=== PATIENT | female | born 1955 | race African-American/Black ===

== ENCOUNTER 2016-08-03 08:27 | Emergency (ER) | payer OTHER, SELFPAY ==
[2016-08-03] MEDS ORDERED: HYDROcodone/Acetaminophen 10/325 mg Tablet ONE (08:41)
--- NOTE | 2016-08-03 09:48 | RAD ---
ONE VIEW CHEST HISTORY: Trauma. COMPARISON: 01/24/2016 FINDINGS: Enlarged cardiac silhouette. Pleural and parenchymal changes in the left lung base cannot be exclud ed. Adequate aeration of the left upper lobe and right lung parenchyma. No pneumothorax or osseous abnormalities. IMPRESSION: 1. Cardiomegaly. 2. Pleural and parenchymal changes in the left lung base cannot be excluded. POS: LOULOU
[2016-08-03] MEDS ORDERED: Ondansetron HCl/PF 4 MG/2 ML Vial ONE (09:58)
[2016-08-03] MEDS ORDERED: Ketorolac Tromethamine 30 MG/ML VIAL ONE (09:58)
[2016-08-03 10:21] LABS: ALT (SGPT) 21 U/L (0-55); AST (SGOT) 14 U/L (5-34); Albumin 3.7 g/dL (3.5-5.0); Alkaline Phosphatase 56 U/L (40-150); Anion Gap 17 mmol/L (10-20); BUN (Urea Nitrogen) 18 mg/dL (9.8-20.1); Bilirubin, Total Less than 0.3 mg/dL (0.2-1.2); Calc. Creatinine Clearance 0 mL/min (70-130); Calcium 9.3 mg/dL (7.8-10.44); Carbon Dioxide 27 mmol/L (22-29); Chloride 104 mmol/L (98-107); Estimated GFR-MDRD Greater than 90; Globulin 2.5 g/dL (2.4-3.5); Glucose 80 mg/dL (70-105); Lipase 24 U/L (8-78); Potassium 3.8 mmol/L (3.5-5.1); Protein, Total 6.2 g/dL (6.0-8.3); Sodium 144 mmol/L (136-145)
[2016-08-03 10:26] LABS: Hemoglobin 9.1 g/dL (12.0-16.0); Mean Corpuscular HGB CONC 30.6 g/dL (32.0-36.0); Mean Corpuscular Hemoglobin 23.6 pg (27.0-31.0); Mean Corpuscular Volume 77.1 fl (81.0-99.0); Mean Platelet Volume 7.4 fL (7.4-10.4); Platelet Count 279 thou/uL (130-400); Red Blood Cell (RBC) Count 3.84 mill/uL (4.20-5.40)
[2016-08-03 10:27] LABS: Anisocytosis MARKED = >30 cells (100X) (0-5/hpf); Band 7 % (5-11); Delete Auto Diff?? YES; Hypochromia SLIGHT = 6-15 cells (100X) (0-5/hpf); Lymphocytes 23 % (21-51); MDiff Complete? YES; Microcytosis MARKED = >30 cells (100X) (0-5/hpf); Neutrophil 63 % (42-75); Poikilocytosis SLIGHT = 6-15 cells (100X) (0-5/hpf); Reactive Lymphocytes 7 % (0-10)
[2016-08-03] MEDS ORDERED: Morphine Sulfate 2 MG/ML SYRINGE ONE ×2 (11:00→12:24)
--- NOTE | 2016-08-03 12:17 | CT ---
CT ABDOMEN WITH IV CONTRAST HISTORY: Fall. Abdomen injury and pain. FINDINGS: Atelectasis is present at the lung bases. A large hiatal hernia is present, with the stomach above the diaphragma. The liver, kidneys, and adrenal glands are within normal limits. No free fluid or free air apparent. The urinary bladder is unremarkable. A small amount of nonobstructed bowel exte nds into an umbilical hernia. Lack of oral contrast limits evaluation of the bowel. IMPRESSION: 1. Large hiatal hernia. 2. Umbilical hernia. 3. No acute traumatic injury is demonstrated. POS: OFF
--- NOTE | 2016-08-03 12:47 | CT ---
CT CHEST NONCONTRAST HISTORY: Fall. Chest injury. FINDINGS: There is mild atelectasis at each lung base. Calcified granulomata and mediastinal lymph nodes are consistent with healed granulomatous disease. A large hiatal hernia is again demonstrated, containi ng the stomach and most of the pancreas. No pleural fluid, pneumothorax, or mediastinal hematoma ev ident. IMPRESSION: 1. Large hiatal hernia. There are no findings to suggest that this is an acute traumatic hernia. 2. No acute traumatic injury is reliably demonstrated. POS: OFF
[2016-08-03 13:16] LABS: Bilirubin Negative (Negative); Blood, Urine Negative (Negative); Clarity Clear (Clear); Glucose, Urine (Dipstick) Negative (Negative); Leukocyte Negative (Negative); Nitrite Negative (Negative); Protein, Urine (Dipstick) Negative (Neg-Trace); Specific Gravity, Urine 1.015 (1.005-1.030); Urobilinogen 0.2 mg/dL (0.2-1.0); pH, Urine 6.5 (5.0-9.0)
[2016-08-03] MEDS ORDERED: Iopamidol 370 76% 100 ML VIAL ONE (13:23)
--- NOTE | 2016-08-03 13:37 | ERRECORD ---
[facility] EMERGENCY RECORD HPI CHEST PAIN (08:47 LHOD) CHIEF COMPLAINT: Patient presents for evaluation of chest pain, ongoing. HISTORIAN: History provided by patient, Additional history obtained from EMS. TIME COURSE: JUST TUBE MOUNTER PT ROLLED OUT OF BED LANDING ON "HARD FLOOR". BROUGHT IN BY EMS SINCE PT C/O SEVERE RIGHT RIB / CHEST PAINS. PT HAS RHEUMATOID ARTHRITIS FOR WHICH SHE IS STEROID DEPENDENT AND USES HOME O2. ASSOCIATED WITH: No associated chills, No associated cough, No associated diaphoresis, No associated fever, No associated nausea, No associated palpitations, No associated shortness of breath, Associated with trauma, No associated upper respiratory infection, No associated vomiting, PT NOT SOB BUT REPORTS DIFFICULT TO TAKE A DEEP BREATH DUE TO PAIN. EXACERBATED BY: Patient's condition not exacerbated by cough, Patient's condition not exacerbated by deep breaths, Patient's condition not exacerbated by movement, Patient's condition not exacerbated by palpation of chest. RELIEVED BY: Patient's condition relieved by nothing. ROS (08:57 LHOD) CONSTITUTIONAL: Historian denies chills, denies fever. CARDIOVASCULAR: Historian reports chest pain, denies diaphoresis, denies palpitations. RESPIRATORY: Historian denies cough, denies shortness of breath. GI: Historian denies abdominal pain, denies nausea, denies vomiting. GENITOURINARY FEMALE: Historian denies hematuria. MUSCULOSKELETAL: Historian reports back pain, reports joint swelling, denies neck pain. RIGHT LOWER CHEST / BACK PAIN. RA WITH SWELLING OF JOINTS. SKIN: Historian denies rash, NO LACS, ABRASIONS OR OBVIOUS HEMATOMA. NEUROLOGIC: Historian denies headache. HEMO/LYMPHATIC: Historian denies easy bruising. NOTES: All systems reviewed, negative except as described above. PAST MEDICAL HISTORY MEDICAL HISTORY: CHF, DC, DM Type II, DUE TO PREDNISONE, HTN, RHEUMATOID ARTHRITIS, ASTHMA, COPD. (08:56 LWAL) FEMALE SURGICAL HISTORY: Surgical history of hysterectomy 1981. (08:56 LWAL) PSYCHIATRIC HISTORY: No previous psychiatric history. (08:56 LWAL) SOCIAL HISTORY: Patient denies drug use, Patient has no smoking history. (08:56 LWAL) NOTES: Nursing records reviewed. (09:17 LHOD) KNOWN ALLERGIES &a-1R&a+25V*p+0X*d5577Q*c202B*c15G*c2P*p-0X&a-25V&a+1R Name: Delmis Chase : 1955 F61 MedRec: [id number] AcctNum: [id number] Prepared: Sat Aug 03, 2016 14:57 by Interface Page 1 of 5 pMD [facility] EMERGENCY RECORD chlorpromazine HCl CURRENT MEDICATIONS predniSONE: TABLET : Strength - 20 mg : ORAL Patient Dose: 2 cap(s) Oral once a day (in the morning). (08:49 LWAL) lisinopril-hydrochlorothiazide: TABLET : Strength - 20 mg-25 mg : ORAL Patient Dose: 1 tab(s) Oral once a day (in the morning). (08:50 LWAL) ibuprofen: TABLET : Strength - 800 mg : ORAL Patient Dose: 1 cap(s) Oral 2 times a day (before meals). (08:50 LWAL) [place]: TABLET : Strength - 7.5 mg-325 mg : ORAL Patient Dose: 1 tab(s) Oral 2 times a day (before meals). (08:50 LWAL) gabapentin: CAPSULE : Strength - 100 mg : ORAL Patient Dose: 1 tab(s) Oral once a day (in the morning). (08:51 LWAL) CAPSULE : Strength - 300 mg : ORAL Patient Dose: 1 tab(s) Oral once a day (at bedtime). (08:51 LWAL) albuterol: AEROSOL (GRAM) : Strength - 90 mcg : INHALATION Patient Dose: As Needed. (08:52 LWAL) NovoLIN 70/30: CARTRIDGE (ML) : Strength - 100 unit/mL (70-30) : SUBCUTANEOUS Patient Dose: 35 units Subcutaneous once a day (at bedtime). (08:52 LWAL) VITAL SIGNS VITAL SIGNS: BP: 161/85, Pulse: 70, Resp: 24, Temp: 98.0 (Oral), Pain: 10, O2 sat: 100 on 2L Oxygen, Time: 08/03/2016 08:35. (08:35 LWAL) BP: 171/94, Time: 08/03/2016 09:55. (09:55 SCHI) BP: 178/103, Pulse: 58, Resp: 20, Pain: 8, O2 sat: 96 on Room Air, Time: 08/03/2016 10:19. (10:19 SCHI) BP: 189/102, Pulse: 59, Resp: 20, Pain: 8, O2 sat: 91 on Room Air, Time: 08/03/2016 10:30. (10:30 SCHI) O2 sat: 93 on Room Air, Time: 08/03/2016 11:05. (11:05 SCHI) BP: 172/90, Pulse: 59, Resp: 18, O2 sat: 99 on 2L Oxygen, Time: 08/03/2016 11:06. (11:06 SCHI) BP: 185/87, Time: 08/03/2016 11:30. (11:30 SCHI) BP: 179/94, Pulse: 60, Resp: 18, Pain: 8, O2 sat: 95 on Room Air, Time: 08/03/2016 11:54. (11:54 SCHI) &a-1R&a+25V*p+0X*d2211M*c202B*c15G*c2P*p-0X&a-25V&a+1R Name: Delmis Chase : 1955 F61 MedRec: [id number] AcctNum: [id number] Prepared: Sat Aug 03, 2016 14:57 by Interface Page 2 of 5 pMD [facility] EMERGENCY RECORD BP: 167/96, Pulse: 65, Resp: 20, O2 sat: 92 on Room Air, Time: 08/03/2016 12:31. (12:31 SCHI) BP: 183/77, Pulse: 54, Resp: 20, Temp: 98.2 (Tympanic), Pain: 8 (Constant), O2 sat: 96 on Room Air, Time: 08/03/2016 13:15. (13:15 SCHI) PHYSICAL EXAM (09:13 LHOD) CONSTITUTIONAL: Vital Signs Reviewed, Patient afebrile, Pulse normal, Blood pressure, hypertensive, Respiratory rate, increased, Patient appears, in severe pain distress, Patient alert and oriented to person, place and time, OBESE, WEARING O2 CANNULA. HEAD: Head exam included findings of head atraumatic. EYES: Pupils equally round and reactive to light, Extraocular muscles intact. NECK: Neck exam included findings of normal range of motion, Trachea midline. RESPIRATORY CHEST: Respiratory exam included findings of, mild respiratory distress, Breath sounds clear, Tenderness, severe, to the right lateral chest, Comprehensive breast exam included findings of breasts symmetrical, RIGHT LOWER ANTERIOR AND LATERAL CHEST WALL MARKEDLY TENDER WITHOUT OBVIOUS CREPITUS. CARDIOVASCULAR: Heart rate regular rate and rhythm, Heart sounds normal. ABDOMEN FEMALE: Abdominal exam included findings of abdomen nontender, Distension present, FATTY ROLLS. BACK: PT ROLLED TO LEFT SIDE, BUT NOT ABLE TO SEE BACK WELL DUE ROLLS OF TISSUE. NO OBVIOUS VERTEBRAL TENDERNESS. UPPER EXTREMITY: Upper extremity exam normal. LOWER EXTREMITY: RIGHT KNEE MILD TENDERNESS. ABLE TO MOVE LEGS WITHOUT SIGNIFICANT PAIN. NEURO: Neuro exam findings include patient oriented to person, place and time, Speech normal. SKIN: NO OBVIOUS OPEN WOUND, ABRASION OR BRUISING. EKG INTERPRETATION (12:07 LHOD) 12 LEAD EKG INTERPRETATION: 12 lead EKG interpreted by Emergency Department Physician at time of study, 12 lead EKG shows, sinus bradycardia, Rate (beats per minute): 55, with no ectopics, T waves normal, Harmans, left. RADIOLOGYINTERPRETATION CHEST: Films of the chest show, cardiomegaly, Other findings: DUE TO SIZE, LARGE OVERLAPPING SOFT TISSUE, Chest CT negative, with contrast. (09:17 LHOD) ABDOMEN: Abdomen/pelvis CT scan, with contrast negative. (11:19 LHOD) &a-1R&a+25V*p+0X*u9530D*c202B*c15G*c2P*p-0X&a-25V&a+1R Name: Delmis Chase : 1955 F61 MedRec: [id number] AcctNum: [id number] Prepared: Sat Aug 03, 2016 14:57 by Interface Page 3 of 5 pMD [facility] EMERGENCY RECORD MEDICATION ADMINISTRATION SUMMARY Drug Name: morphine intravenous, Dose Ordered: 6 mg, Route: IV Push, Status: Given, Time: 12:30 08/03/2016, Drug Name: morphine intravenous, Dose Ordered: 6 mg, Route: IV Push, Status: Given, Time: 11:05 08/03/2016, Drug Name: morphine intravenous, Dose Ordered: 4 mg, Route: IV Push, Status: Given, Time: 10:08 08/03/2016, Drug Name: Toradol injection, Dose Ordered: 30 mg, Route: IV Push, Status: Given, Time: 10:06 08/03/2016, Drug Name: Zofran intravenous, Dose Ordered: 8 mg, Route: IV Push, Status: Given, Time: 10:04 08/03/2016, Drug Name: [place], Dose Ordered: 10 mg, Route: Oral, Status: Given, Time: 08:45 08/03/2016, Detailed record available in Medication Service section. DOCTOR NOTES (10:16 LHOD) TEXT: 1000--UNABLE TO SIT PT UP WITHOUT EXTREME PAIN, SO CT ABDOMEN ORDERED TO R/O HEPATIC INJURY. 1017--SHOULD BE NOTED DIAGNOSIS OF NAUSEA AND SCRIPT FOR ZOFRAN ENTERED IN ERROR FOR ANOTHER PATIENT. UNABLE TO ERASE FROM DIAGNOSIS. 1054--CT COMPLETE. PT CONTINUED C/O SEVERE RIGHT SIDE PAIN. 1118--CT ABD NEG., PT STILL UNABLE TO SIT UP. WILL TRY CT OF CHEST--R/O HEMO / PNEUMO 1139---BACK FROM CHEST CT. PT NEVER ABLE TO SIT UP WITHOUT EXCRUCIATING PAIN, SO TRANSFER FOR FURTHER EVALUATION AND PAIN CONTROL. PROBLEM LIST No recorded problems DIAGNOSIS (12:17 LHOD) FINAL: PRIMARY: RIGHT THORACO-ABDOMINAL TRAUMA WITH INTRACTABLE PAIN, ADDITIONAL: NAUSEA---UNCERTAIN ETIOLOGY, STEROID DEPENDENT RHEUMATOID ARTHRITIS. PRESCRIPTION (09:08 LHOD) Zofran ODT: TABLET, RAPID DISSOLVE : 8 mg : ORAL : Quantity: 1 Unit: tab(s) Route: ORAL Schedule: every 6 hours PRN Dispense: 4 May substitute. Refills: 3 . NOTES: No Refills. DISPOSITION PATIENT: Disposition Type: Discharge, Disposition: *Discharge Home, Condition: Good. (09:08 LHOD) Disposition Type: Entered in Error, Disposition: (none). (09:11 LHOD) Disposition Type: (none). (09:42 [facility]) Disposition Type: Transfer, Disposition: Transfer to [facility], Condition: Fair. (12:17 LHOD) &a-1R&a+25V*p+0X*f2529G*c202B*c15G*c2P*p-0X&a-25V&a+1R Name: Delmis Chase : 1955 F61 MedRec: [id number] AcctNum: [id number] Prepared: Ronald Aug 03, 2016 14:57 by Interface Page 4 of 5 pMD [facility] EMERGENCY RECORD Patient left the department. (13:29 SITA) Rowe: PEARL=MD Roly, Mark VINSON=SOPHIE Bean, Ami BUCKNER=SOPHIE Zamora, Yariela &a-1R&a+25V*p+0X*b8415Q*c202B*c15G*c2P*p-0X&a-25V&a+1R Name: Delmis hCase : 1955 F61 MedRec: [id number] AcctNum: [id number] Prepared: Ronald Aug 03, 2016 14:57 by Interface Page 5 of 5 pMD MTDD
--- NOTE | 2016-08-03 13:43 | PICIS ---
[facility] EMERGENCY RECORD COMMUNICATIONS (12:23 OD) COMMUNICATIONS: Notes: DISCUSSED WITH , ACCEPTS FOR TRANSFER, BUT WE WILL GIVE ADDITIONAL MORPHINE TO SEE IF PATIENT CAN TOLERATE MOVEMENT. TRIAGE (Sat Aug 03, 2016 08:36 LWAL) TRIAGE NOTES: FALL, R RIB AND BACK PAIN. (Sat Aug 03, 2016 08:36 LWAL) PATIENT: NAME: Delmis Chase, AGE: 61, GENDER: female, : Sun 1955, TIME OF GREET: Sat Aug 03, 2016 08:28, PREFERRED LANGUAGE: [place]ican, ETHNICITY: Not or , ECODE BILLING MAP: [facility], SSN: [id number], Zip Code: [address], KG WEIGHT: [phone], PHONE: , , , PERSON ID: [id number]. (Sat Aug 03, 2016 08:36 LWAL) COMPLAINT: FALL, SOB, RIB PAIN. (Sat Aug 03, 2016 08:36 LWAL) ADMISSION: URGENCY: 3 Urgent, ADMISSION SOURCE: Home, TRANSPORT: AMBULANCE - [facility], BED: ED -02. (Sat Aug 03, 2016 08:36 LWAL) ASSESSMENT: Assessment: ROLLED OUT OF BED ONTO FLOOR, PAIN TO RIGHT SIDE OF RIBS AND BACK, Symptoms began 729. (08:56 LWAL) PAIN: Location R RIBS AND BACK, Pain is intermittent. (08:56 LWAL) IMMUNIZATIONS: Flu vaccine up to date, Tetanus immunization up to date, Pneumococcal vaccine up to date. (08:56 LWAL) SIRS SCORING: Heart Rate 55-109 (0), Temp range 96.8-101.1 (0), respiratory rate 12-24 (0), Mental Status altered: no (0), Total SIRS Score 0, Infection or Suspected Infection: No. (08:56 LWAL) TREATMENTS IN PROGRESS: Patient on oxygen, Percent O2 =2, Patient on child monitor, Rhythm: NSR. (08:56 LWAL) PROVIDERS: TRIAGE NURSE: Ami Bean RN. (Sat Aug 03, 2016 08:36 LWAL) VITAL SIGNS: BP 161/85, Pulse 70, Resp 24, Temp 98.0, (Oral), Pain 10, O2 Sat 100, on 2L Oxygen, Time 08/03/2016 08:35. (08:35 LWAL) PREVIOUS VISIT ALLERGIES: chlorpromazine HCl. (Sat Aug 03, 2016 08:36 LWAL) chlorpromazine HCl. (08:56 LWAL) KNOWN ALLERGIES chlorpromazine HCl CURRENT MEDICATIONS predniSONE: TABLET : Strength - 20 mg : ORAL Patient Dose: 2 cap(s) Oral once a day (in the morning). (08:49 LWAL) lisinopril-hydrochlorothiazide: TABLET : Strength - 20 mg-25 mg : ORAL Patient Dose: 1 tab(s) Oral once a day (in the morning). (08:50 LWAL) ibuprofen: &a-1R&a+25V*p+0X*q4878A*c202B*c15G*c2P*p-0X&a-25V&a+1R Name: Delmis Chase : 1955 F61 MedRec: [id number] AcctNum: [id number] Prepared: Sat Aug 03, 2016 14:57 by Interface Page 1 of 15 pMD [facility] EMERGENCY RECORD TABLET : Strength - 800 mg : ORAL Patient Dose: 1 cap(s) Oral 2 times a day (before meals). (08:50 LWAL) [place]: TABLET : Strength - 7.5 mg-325 mg : ORAL Patient Dose: 1 tab(s) Oral 2 times a day (before meals). (08:50 LWAL) gabapentin: CAPSULE : Strength - 100 mg : ORAL Patient Dose: 1 tab(s) Oral once a day (in the morning). (08:51 LWAL) CAPSULE : Strength - 300 mg : ORAL Patient Dose: 1 tab(s) Oral once a day (at bedtime). (08:51 LWAL) albuterol: AEROSOL (GRAM) : Strength - 90 mcg : INHALATION Patient Dose: As Needed. (08:52 LWAL) NovoLIN 70/30: CARTRIDGE (ML) : Strength - 100 unit/mL (70-30) : SUBCUTANEOUS Patient Dose: 35 units Subcutaneous once a day (at bedtime). (08:52 LWAL) VITAL SIGNS VITAL SIGNS: BP: 161/85, Pulse: 70, Resp: 24, Temp: 98.0 (Oral), Pain: 10, O2 sat: 100 on 2L Oxygen, Time: 08/03/2016 08:35. (08:35 LWAL) BP: 171/94, Time: 08/03/2016 09:55. (09:55 SCHI) BP: 178/103, Pulse: 58, Resp: 20, Pain: 8, O2 sat: 96 on Room Air, Time: 08/03/2016 10:19. (10:19 SCHI) BP: 189/102, Pulse: 59, Resp: 20, Pain: 8, O2 sat: 91 on Room Air, Time: 08/03/2016 10:30. (10:30 SCHI) O2 sat: 93 on Room Air, Time: 08/03/2016 11:05. (11:05 SCHI) BP: 172/90, Pulse: 59, Resp: 18, O2 sat: 99 on 2L Oxygen, Time: 08/03/2016 11:06. (11:06 SCHI) BP: 185/87, Time: 08/03/2016 11:30. (11:30 SCHI) BP: 179/94, Pulse: 60, Resp: 18, Pain: 8, O2 sat: 95 on Room Air, Time: 08/03/2016 11:54. (11:54 SCHI) BP: 167/96, Pulse: 65, Resp: 20, O2 sat: 92 on Room Air, Time: 08/03/2016 12:31. (12:31 SCHI) BP: 183/77, Pulse: 54, Resp: 20, Temp: 98.2 (Tympanic), Pain: 8 (Constant), O2 sat: 96 on Room Air, Time: 08/03/2016 13:15. (13:15 SCHI) NURSING ASSESSMENT: FALL RISK (09:02 LWAL) FALL RISK: Fall risk assessment findings include: History of falls (5), Impaired mobility (3), Total score 8. NURSING ASSESSMENT: FOCUSED (08:45 LWAL) &a-1R&a+25V*p+0X*a4721D*c202B*c15G*c2P*p-0X&a-25V&a+1R Name: Delmis Chase : 1955 F61 MedRec: [id number] AcctNum: [id number] Prepared: Ronald Aug 03, 2016 14:57 by Interface Page 2 of 15 pMD [facility] EMERGENCY RECORD CONSTITUTIONAL: Patient arrives, via [facility], Unsteady gait, Assistance to cart, Lift to cart, History obtained from patient, Patient appears comfortable, Patient cooperative, Patient alert, Oriented to person, place and time, Skin warm, Skin dry, Skin normal in color, Mucous membranes pink, Mucous membranes moist, Patient is well-groomed, Patient complains of PT ROLLED OUT OF BED ONTO FLOOR, PAIN TO RIGHT RIBS AND BACK . PT WAS TRYING TO GET UP OUT OF THE BED AND HER HAND SLIPPED. PT CONTINUED IN MOTION TO ROLLING OUT OF BED AND INTO FLOOR ONTO HER RIGHT SIDE. PT DID NOT HIT ANYTHING EXCEPT THE FLOOR. FAMILY TO HELP GET THE PT UP AND BACK INTO THE BED. PAIN: R RIBS AND BACK, Onset of pain 0730, on a scale 0-10 patient rates pain as 10, Nothing has been tried to alleviate the pain. EYES: Focused eye assessment finding include pupils equally round and reactive to light, Left pupil 3 mm in size, Right pupil 3 mm in size. NEURO: Focused neuro assessment findings include patient alert, cooperative, No facial droop noted, Speech coherent, No loss of consciousness. GCS: Eye opening: (4) - Spontaneous, Verbal: (5) - Oriented/conversive, Motor: (6) - Obeys commands/Spontaneous, GCS Total: 15. RESPIRATORY: Focused respiratory assessment findings include breath sounds clear. ABDOMEN: Focused abdominal assessment findings include abdomen soft, tender, Notes: TENDERNESS UPON PALPATION TO R SIDE. GENITOURINARY FEMALE: Focused genitourinary assessment not applicable. LACERATION: Focused laceration assessment not applicable. NOTES: Patient tolerated procedure well. SAFETY: Side rails up, Cart/Stretcher in lowest position, Family at bedside, Call light within reach, Hospital ID band on. NURSING PROCEDURE: BEDSIDE RADIOLOGY (08:52 LWAL) PATIENT IDENTIFIER: Patient actively involved in identification process, Patient's identity verified by patient stating name, Patient's identity verified by hospital ID bracelet. BEDSIDE RADIOLOGY: Bedside radiology performed by LILIA, Portable chest x-ray performed. NOTES: Patient tolerated procedure well. SAFETY: Side rails up, Cart/Stretcher in lowest position, Family at bedside, Call light within reach, Hospital ID band on. NURSING PROCEDURE: ANALYTICAL CLERK (08:45 SCHI) ANALYTICAL CLERK: Patient placed on child monitor, Patient placed on non-invasive blood pressure monitor, Patient placed on continuous pulse oximetry, Adult/pediatric oxisensor applied. &a-1R&a+25V*p+0X*j8062B*c202B*c15G*c2P*p-0X&a-25V&a+1R Name: Delmis Chase : 1955 F61 MedRec: [id number] AcctNum: [id number] Prepared: Sat Aug 03, 2016 14:57 by Interface Page 3 of 15 pMD [facility] EMERGENCY RECORD NURSING PROCEDURE: EKG CHART (12:22 SCHI) PATIENT IDENTIFIER: Patient actively involved in identification process, Patient's identity verified by patient stating name, Patient's identity verified by patient stating date. EKG: EKG indicated for complaint of palpitations, 12 lead EKG performed on the left chest, done by NISH BARRIOS. NOTES: Emotional support needed and given, Patient tolerated procedure well. SAFETY: Side rails up, Cart/Stretcher in lowest position, Family at bedside, Hospital ID band on. NURSING PROCEDURE: IV PATIENT IDENITIFIER: Patient actively involved in identification process, Patient's identity verified by patient stating name, Patient's identity verified by patient stating date, Patient's identity verified by hospital ID bracelet. (09:55 SCHI) IV SITE 1: IV therapy indicated for hydration, IV therapy indicated for medication administration, IV established, to the left antecubital, using a 20 gauge catheter, in one attempt, IV site prepped with chloraprep, Saline lock established, Flushed with normal saline (mls): 10, Labs drawn at time of placement, labeled in the presence of the patient and sent to lab. (09:55 SCHI) FOLLOW-UP SITE 1: Notes: NO S/S INFECTION, SWELLING, BLEEDING, CONTINUED FOR TRANSFER. (13:23 SCHI) NURSING PROCEDURE: NURSE NOTES (12:22 SCHI) NURSES NOTES: Warm blanket given to patient, Notes: PT PLACED IN GOWN with difficulty, pt extreme pain with movement or turning. NURSING PROCEDURE: OXYGEN THERAPY (08:45 SCHI) OXYGEN THERAPY: 2L oxygen given, via nasal cannula applied. NURSING PROCEDURE: TRANSFER (13:23 SCHI) TRANSFER: Reason for transfer no bed available, Reason for transfer need for specialized care, Diagnosis: rt side abd trauma with intractable pain, nausea, Accepting institution: [facility], Accepting physician: bebo, Referring physician: roly, Transported by urgent ambulance, accompanied by emergency medical services personnel, Report called to receiving facility, [facility] at 1357, Provided opportunity to answer questions, Bed assigned er, Summary of Care printed, Copy of patient record prepared for receiving facility, Copy of diagnostic studies, Status of patient's valuables documented on chart, Medication reconciliation form prepared and sent to receiving facility, Patient consent for transfer signed, Patient given appropriate sedation for safe transport, Family member contacted. BELONGINGS: Belongings and valuables with patient at time of discharge include:, Belongings sent home with family member. &a-1R&a+25V*p+0X*a5804M*c202B*c15G*c2P*p-0X&a-25V&a+1R Name: Delmis Chase : 1955 F61 MedRec: [id number] AcctNum: [id number] Prepared: Ronald Aug 03, 2016 14:57 by Interface Page 4 of 15 pMD [facility] EMERGENCY RECORD EQUIPMENT WITH PATIENT: Equipment with patient at time of transfer child monitor, Saline lock intact and patent at time of transfer. NOTES: Emotional support needed and given, Patient tolerated procedure well. NURSING PROCEDURE: TRANSPORT TO TESTS PATIENT IDENTIFIER: Patient actively involved in identification process, Patient's identity verified by patient stating name, Patient's identity verified by hospital ID braamyet. (10:40 LWAL) TRANSPORT TO TESTS: Transport indicated to facilitate diagnosis, Patient transported to CT scan, via cart, Accompanied by x-ray infectious waste technician, Accompanied by nurse. (10:40 LWAL) Transport indicated to facilitate diagnosis, Patient transported to CT scan, via cart, Accompanied by x-ray infectious waste technician, Accompanied by nurse. (11:30 SCHI) FOLLOW-UP: After procedure, patient returned to emergency department. (11:39 SCHI) NOTES: Patient tolerated procedure well. (10:40 LWAL) SAFETY: Side rails up, Cart/Stretcher in lowest position, Family at bedside, Call light within reach, Hospital ID band on. (10:40 LWAL) NURSING PROCEDURE: URINE COLLECTION (12:22 SCHI) PATIENT IDENTIFIER: Patient actively involved in identification process, Patient's identity verified by patient stating name, Patient's identity verified by hospital ID bracelet, Patient's identity verified by family member. URINE COLLECTION FEMALE: Urine collection indicated to monitor output, Simple deras inserted, using a 16 fr pre-connected catheter, in one attempt, urine daphne in color, Specimen labeled in the presence of the patient and sent to lab. SAFETY: Side rails up, Cart/Stretcher in lowest position, Family at bedside, Hospital ID band on. ORDER DETAILS Order Name: ANALYTICAL CLERK ED, Status: Done, Time: 12:21 08/03/2016, User: SITA, - Ordered for: MD Dunham Lefayne, - Entered by: MD Dunham Lefayne - Ronald Aug 03, 2016 11:57, - Quantity: 1, Order Name: CBC with Differential, Status: Active, Time: 09:41 08/03/2016, User: PEARL, - Ordered for: MD Dunham Lefayne, - Entered by: MD Dunham Lefayne - Ronald Aug 03, 2016 09:41, - Quantity: 1, Order Name: Comprehensive Metabolic Panel, Status: Active, Time: 09:41 08/03/2016, User: PEARL, - Ordered for: MD Dunham Lefayne, &a-1R&a+25V*p+0X*z9986B*c202B*c15G*c2P*p-0X&a-25V&a+1R Name: Delmis Chase : 1955 F61 MedRec: [id number] AcctNum: [id number] Prepared: Sat Aug 03, 2016 14:57 by Interface Page 5 of 15 pMD [facility] EMERGENCY RECORD - Entered by: MD Dunham Lefayne - Ronald Aug 03, 2016 09:41, - Quantity: 1, Order Name: CT Abdomen Pelvis Trauma, Status: Active, Time: 09:44 08/03/2016, User: PEARL, - Ordered for: MD Dunham Lefayne, - Entered by: MD Dunham Lefayne - Sat Aug 03, 2016 09:44, - Quantity: 1, Order Name: CT Chest W Con, Status: Canceled, Time: 11:23 08/03/2016, User: System, - Ordered for: MD Dunham Lefayne, - Entered by: MD Dunham Lefayne - Sat Aug 03, 2016 11:18, - Quantity: 1, Order Name: CT Chest W Con, Status: Active, Time: 11:24 08/03/2016, User: PEARL, - Ordered for: MD Dunham Lefayne, - Entered by: MD Dunham Lefayne - Sat Aug 03, 2016 11:24, - Quantity: 1, Order Name: CT Thoracic Spine WO Con, Status: Canceled, Time: 11:43 08/03/2016, User: System, - Ordered for: MD Dunham Lefayne, - Entered by: MD Dunham Lefayne - Sat Aug 03, 2016 11:25, - Quantity: 1, Order Name: EKG 12 Lead in Emergency Room, Status: Active, Time: 11:57 08/03/2016, User: PEARL, - Ordered for: MD Dunham Lefayne, - Entered by: MD Dunham Lefayne - Sat Aug 03, 2016 11:57, - Quantity: 1, Order Name: DERAS CATHETER ED, Status: Done, Time: 12:21 08/03/2016, User: SITA, - Ordered for: MD Dunham Lefayne, - Entered by: MD Dunham Lefayne - Sat Aug 03, 2016 11:57, - Quantity: 1, Order Name: Lipase, Status: Active, Time: 09:58 08/03/2016, User: PEARL, - Ordered for: MD Dunham Lefayne, - Entered by: MD Dunham Lefayne - Sat Aug 03, 2016 09:58, - Quantity: 1, Order Name: SALINE LOCK, Status: Done, Time: 09:56 08/03/2016, User: SITA, - Ordered for: MD Dunham Lefayne, - Entered by: MD Dunham Lefayne - Sat Aug 03, 2016 09:41, - Quantity: 1, Order Name: Urinalysis w/ Rflx Microscopic, Status: Active, Time: 11:57 08/03/2016, User: OD, - Ordered for: MD Dunham Lefayne, - Entered by: MD Dunham Lefayne - Ronald Aug 03, 2016 11:57, - Quantity: 1, Order Name: XR Chest Pa & Lat STANDARD, Status: Canceled, Time: 08:45 08/03/2016, User: System, - Ordered for: MD Dunham Lefayne, &a-1R&a+25V*p+0X*v1740C*c202B*c15G*c2P*p-0X&a-25V&a+1R Name: Delmis Chase : 1955 F61 MedRec: [id number] AcctNum: [id number] Prepared: Sat Aug 03, 2016 14:57 by Interface Page 6 of 15 pMD [facility] EMERGENCY RECORD - Entered by: MD Dunham Lefayne - Ronald Aug 03, 2016 08:38, - Quantity: 1. MEDICATION ADMINISTRATION SUMMARY Drug Name: morphine intravenous, Dose Ordered: 6 mg, Route: IV Push, Status: Given, Time: 12:30 08/03/2016, Drug Name: morphine intravenous, Dose Ordered: 6 mg, Route: IV Push, Status: Given, Time: 11:05 08/03/2016, Drug Name: morphine intravenous, Dose Ordered: 4 mg, Route: IV Push, Status: Given, Time: 10:08 08/03/2016, Drug Name: Toradol injection, Dose Ordered: 30 mg, Route: IV Push, Status: Given, Time: 10:06 08/03/2016, Drug Name: Zofran intravenous, Dose Ordered: 8 mg, Route: IV Push, Status: Given, Time: 10:04 08/03/2016, Drug Name: [place], Dose Ordered: 10 mg, Route: Oral, Status: Given, Time: 08:45 08/03/2016, Detailed record available in Medication Service section. MEDICATION SERVICE morphine intravenous: Order: morphine intravenous (morphine sulfate) - Dose: 4 mg : IV Push Ordered by: Mark Dunham MD Entered by: Mark Dunham MD Sat Aug 03, 2016 09:43 , Acknowledged by: Barby Zamora RN Sat Aug 03, 2016 09:57 Documented as given by: Barby Zamora RN Sat Aug 03, 2016 10:08 Patient, Medication, Dose, Route and Time verified prior to administration. IV SITE #1 IVP, subsequent different medication, Catheter placement confirmed via flush prior to administration, IV site without signs or symptoms of infiltration during medication administration, No swelling during administration, No drainage during administration, IV flushed after administration, Correct patient, time, route, dose and medication confirmed prior to administration, Patient advised of actions and side-effects prior to administration, Allergies confirmed and medications reviewed prior to administration. : Follow Up : Response assessment performed, No signs or symptoms of allergic reaction noted, Decreased pain, _IV SITE #1:_, from 04/15 to 02/13. (10:30 SCHI) morphine intravenous: Order: morphine intravenous (morphine sulfate) - Dose: 6 mg : IV Push Ordered by: Mark Dunham MD Entered by: Mark Dunham MD Sat Aug 03, 2016 10:54 , Acknowledged by: Barby Zamora RN Sat Aug 03, 2016 10:59 Documented as given by: Barby Zamora RN Sat Aug 03, 2016 11:05 Patient, Medication, Dose, Route and Time verified prior to administration. IV SITE #1 IVP, subsequent different medication, Catheter placement confirmed via flush prior to administration, IV site without signs or symptoms of infiltration during medication administration, No &a-1R&a+25V*p+0X*l0222D*c202B*c15G*c2P*p-0X&a-25V&a+1R Name: Delmis Chase : 1955 F61 MedRec: [id number] AcctNum: [id number] Prepared: Sat Aug 03, 2016 14:57 by Interface Page 7 of 15 pMD [facility] EMERGENCY RECORD swelling during administration, No drainage during administration, IV flushed after administration, Correct patient, time, route, dose and medication confirmed prior to administration, Patient advised of actions and side-effects prior to administration, Allergies confirmed and medications reviewed prior to administration. : Follow Up : Response assessment performed, No signs or symptoms of allergic reaction noted, No change in pain, No change in symptoms, _IV SITE #1:_. (11:30 SCHI) morphine intravenous: Order: morphine intravenous (morphine sulfate) - Dose: 6 mg : IV Push Ordered by: Mark Dunham MD Entered by: Mark Dunham MD Sat Aug 03, 2016 12:16 , Acknowledged by: Barby Zamora RN Sat Aug 03, 2016 12:24 Documented as given by: Barby Zamora RN Sat Aug 03, 2016 12:30 Patient, Medication, Dose, Route and Time verified prior to administration. IV SITE #1 IVP, repeat same medication, Catheter placement confirmed via flush prior to administration, IV site without signs or symptoms of infiltration during medication administration, No swelling during administration, No drainage during administration, IV flushed after administration, Correct patient, time, route, dose and medication confirmed prior to administration, Patient advised of actions and side-effects prior to administration, Allergies confirmed and medications reviewed prior to administration. : Follow Up : Response assessment performed, No signs or symptoms of allergic reaction noted, No change in symptoms, _IV SITE #1:_. (12:45 SCHI) [place]: Order: [place] (hydrocodone bitartrate/acetaminophen) - Dose: 10 mg : Oral Ordered by: Mark Dunham MD Entered by: Mark Dunham MD Sat Aug 03, 2016 08:37 , Acknowledged by: Ami Bean RN Sat Aug 03, 2016 08:40 Documented as given by: Ami Bean RN Sat Aug 03, 2016 08:45 Patient, Medication, Dose, Route and Time verified prior to administration. Amount given: 10 MG, Site: Medication administered P.O., Correct patient, time, route, dose and medication confirmed prior to administration, Patient advised of actions and side-effects prior to administration, Allergies confirmed and medications reviewed prior to administration, Patient in position of comfort, Side rails up, Cart in lowest position, Family at bedside. Toradol injection: Order: Toradol injection (ketorolac tromethamine) - Dose: 30 mg : IV Push POTENTIAL CONTRAINDICATED INTERACTION: ibuprofen - Patient tolerated similar in past Ordered by: Mark Dunham MD Entered by: Mark Dunham MD Sat Aug 03, 2016 09:42 , Acknowledged by: Barby Zamora RN Sat Aug 03, 2016 09:57 Documented as given by: Barby Zamora RN Sat Aug 03, 2016 10:06 Patient, Medication, Dose, Route and Time verified prior to &a-1R&a+25V*p+0X*e5010L*c202B*c15G*c2P*p-0X&a-25V&a+1R Name: Delmis Chase : 1955 F61 MedRec: [id number] AcctNum: [id number] Prepared: Sat Aug 03, 2016 14:57 by Interface Page 8 of 15 pMD [facility] EMERGENCY RECORD administration. IV SITE #1 IVP, subsequent different medication, Catheter placement confirmed via flush prior to administration, IV site without signs or symptoms of infiltration during medication administration, No swelling during administration, No drainage during administration, IV flushed after administration, Correct patient, time, route, dose and medication confirmed prior to administration, Patient advised of actions and side-effects prior to administration, Allergies confirmed and medications reviewed prior to administration. Zofran intravenous: Order: Zofran intravenous (ondansetron HCl) - Dose: 8 mg : IV Push Ordered by: Mark Dunham MD Entered by: Mark Dunham MD Sat Aug 03, 2016 09:43 , Acknowledged by: Barby Zamora RN Sat Aug 03, 2016 09:57 Documented as given by: Barby Zamora RN Sat Aug 03, 2016 10:04 Patient, Medication, Dose, Route and Time verified prior to administration. IV SITE #1 IVP, initial medication, Catheter placement confirmed via flush prior to administration, IV site without signs or symptoms of infiltration during medication administration, No swelling during administration, No drainage during administration, IV flushed after administration, Correct patient, time, route, dose and medication confirmed prior to administration, Patient advised of actions and side-effects prior to administration, Allergies confirmed and medications reviewed prior to administration. HPI CHEST PAIN (08:47 LHOD) CHIEF COMPLAINT: Patient presents for evaluation of chest pain, ongoing. HISTORIAN: History provided by patient, Additional history obtained from EMS. TIME COURSE: JUST POST SECONDARY PROFESSIONAL PT ROLLED OUT OF BED LANDING ON "HARD FLOOR". BROUGHT IN BY EMS SINCE PT C/O SEVERE RIGHT RIB / CHEST PAINS. PT HAS RHEUMATOID ARTHRITIS FOR WHICH SHE IS STEROID DEPENDENT AND USES HOME O2. ASSOCIATED WITH: No associated chills, No associated cough, No associated diaphoresis, No associated fever, No associated nausea, No associated palpitations, No associated shortness of breath, Associated with trauma, No associated upper respiratory infection, No associated vomiting, PT NOT SOB BUT REPORTS DIFFICULT TO TAKE A DEEP BREATH DUE TO PAIN. EXACERBATED BY: Patient's condition not exacerbated by cough, Patient's condition not exacerbated by deep breaths, Patient's condition not exacerbated by movement, Patient's condition not exacerbated by palpation of chest. RELIEVED BY: Patient's condition relieved by nothing. ROS (08:57 LHOD) CONSTITUTIONAL: Historian denies chills, denies fever. CARDIOVASCULAR: Historian reports chest pain, denies &a-1R&a+25V*p+0X*z7995D*c202B*c15G*c2P*p-0X&a-25V&a+1R Name: Delmis Chase : 1955 F61 MedRec: [id number] AcctNum: [id number] Prepared: Ronald Aug 03, 2016 14:57 by Interface Page 9 of 15 pMD [facility] EMERGENCY RECORD diaphoresis, denies palpitations. RESPIRATORY: Historian denies cough, denies shortness of breath. GI: Historian denies abdominal pain, denies nausea, denies vomiting. GENITOURINARY FEMALE: Historian denies hematuria. MUSCULOSKELETAL: Historian reports back pain, reports joint swelling, denies neck pain. RIGHT LOWER CHEST / BACK PAIN. RA WITH SWELLING OF JOINTS. SKIN: Historian denies rash, NO LACS, ABRASIONS OR OBVIOUS HEMATOMA. NEUROLOGIC: Historian denies headache. HEMO/LYMPHATIC: Historian denies easy bruising. NOTES: All systems reviewed, negative except as described above. PAST MEDICAL HISTORY MEDICAL HISTORY: CHF, [place], DM Type II, DUE TO PREDNISONE, HTN, RHEUMATOID ARTHRITIS, ASTHMA, COPD. (08:56 LWAL) FEMALE SURGICAL HISTORY: Surgical history of hysterectomy 1981. (08:56 LWAL) PSYCHIATRIC HISTORY: No previous psychiatric history. (08:56 LWAL) SOCIAL HISTORY: Patient denies drug use, Patient has no smoking history. (08:56 LWAL) NOTES: Nursing records reviewed. (09:17 LHOD) PHYSICAL EXAM (09:13 LHOD) CONSTITUTIONAL: Vital Signs Reviewed, Patient afebrile, Pulse normal, Blood pressure, hypertensive, Respiratory rate, increased, Patient appears, in severe pain distress, Patient alert and oriented to person, place and time, OBESE, WEARING O2 CANNULA. HEAD: Head exam included findings of head atraumatic. EYES: Pupils equally round and reactive to light, Extraocular muscles intact. NECK: Neck exam included findings of normal range of motion, Trachea midline. RESPIRATORY CHEST: Respiratory exam included findings of, mild respiratory distress, Breath sounds clear, Tenderness, severe, to the right lateral chest, Comprehensive breast exam included findings of breasts symmetrical, RIGHT LOWER ANTERIOR AND LATERAL CHEST WALL MARKEDLY TENDER WITHOUT OBVIOUS CREPITUS. CARDIOVASCULAR: Heart rate regular rate and rhythm, Heart sounds normal. ABDOMEN FEMALE: Abdominal exam included findings of abdomen nontender, Distension present, FATTY ROLLS. BACK: PT ROLLED TO LEFT SIDE, BUT NOT ABLE TO SEE BACK WELL DUE ROLLS OF TISSUE. NO OBVIOUS VERTEBRAL TENDERNESS. UPPER EXTREMITY: Upper extremity exam normal. &a-1R&a+25V*p+0X*h3142O*c202B*c15G*c2P*p-0X&a-25V&a+1R Name: Delmis Chase : 1955 F61 MedRec: [id number] AcctNum: [id number] Prepared: Ronald Aug 03, 2016 14:57 by Interface Page 10 of 15 pMD [facility] EMERGENCY RECORD LOWER EXTREMITY: RIGHT KNEE MILD TENDERNESS. ABLE TO MOVE LEGS WITHOUT SIGNIFICANT PAIN. NEURO: Neuro exam findings include patient oriented to person, place and time, Speech normal. SKIN: NO OBVIOUS OPEN WOUND, ABRASION OR BRUISING. LAB INTERPRETATION (10:26 LHOD) INTERPRETATION: I reviewed the lab results, CBC abnormal, Hemoglobin decreased, Hematocrit decreased, Chemistry normal, Lipase normal. EVENTS TRANSFER: Triage to Emergency Main ED -02. (Sat Aug 03, 2016 08:36 LWAL) Removed from Emergency Main ED -02. (13:29 SCHI) RADIOLOGYINTERPRETATION CHEST: Films of the chest show, cardiomegaly, Other findings: DUE TO SIZE, LARGE OVERLAPPING SOFT TISSUE, Chest CT negative, with contrast. (09:17 LHOD) ABDOMEN: Abdomen/pelvis CT scan, with contrast negative. (11:19 LHOD) EKG INTERPRETATION (12:07 LHOD) 12 LEAD EKG INTERPRETATION: 12 lead EKG interpreted by Emergency Department Physician at time of study, 12 lead EKG shows, sinus bradycardia, Rate (beats per minute): 55, with no ectopics, T waves normal, [place], left. DOCTOR NOTES (10:16 LHOD) TEXT: 1000--UNABLE TO SIT PT UP WITHOUT EXTREME PAIN, SO CT ABDOMEN ORDERED TO R/O HEPATIC INJURY. 1017--SHOULD BE NOTED DIAGNOSIS OF NAUSEA AND SCRIPT FOR ZOFRAN ENTERED IN ERROR FOR ANOTHER PATIENT. UNABLE TO ERASE FROM DIAGNOSIS. 1054--CT COMPLETE. PT CONTINUED C/O SEVERE RIGHT SIDE PAIN. 1118--CT ABD NEG., PT STILL UNABLE TO SIT UP. WILL TRY CT OF CHEST--R/O HEMO / PNEUMO 1139---BACK FROM CHEST CT. PT NEVER ABLE TO SIT UP WITHOUT EXCRUCIATING PAIN, SO TRANSFER FOR FURTHER EVALUATION AND PAIN CONTROL. PROBLEM LIST No recorded problems DIAGNOSIS (12:17 LHOD) FINAL: PRIMARY: RIGHT THORACO-ABDOMINAL TRAUMA WITH INTRACTABLE PAIN, ADDITIONAL: NAUSEA---UNCERTAIN ETIOLOGY, STEROID DEPENDENT RHEUMATOID ARTHRITIS. DISPOSITION &a-1R&a+25V*p+0X*v2432I*c202B*c15G*c2P*p-0X&a-25V&a+1R Name: Delmis Chase : 1955 F61 MedRec: [id number] AcctNum: [id number] Prepared: Ronald Aug 03, 2016 14:57 by Interface Page 11 of 15 pMD [facility] EMERGENCY RECORD PATIENT: Disposition Type: Discharge, Disposition: *Discharge Home, Condition: Good. (09:08 LHOD) Disposition Type: Entered in Error, Disposition: (none). (09:11 LHOD) Disposition Type: (none). (09:42 SCHI) Disposition Type: Transfer, Disposition: Transfer to [facility], Condition: Fair. (12:17 LHOD) Patient left the department. (13:29 SCHI) INSTRUCTION (09:10 LHOD) DISCHARGE: NAUSEA VOMITING 7YADULT, PEPTIC ULCER VS GASTRITIS. FOLLOWUP: Blessing ALBERTS., JAVI PANDA, [facility] , , Follow up with Primary Care Physician in 5 days. SPECIAL: CONTINUE PROTONIX. AVOID IBUPROFEN FOR NEXT 2-3 DAYS. SOUPS / GATORADE UNTIL NAUSEA RESOLVES. *RETURN IF WORSE Follow-up with your PCP. PRESCRIPTION (09:08 LHOD) Zofran ODT: TABLET, RAPID DISSOLVE : 8 mg : ORAL : Quantity: 1 Unit: tab(s) Route: ORAL Schedule: every 6 hours PRN Dispense: 4 May substitute. Refills: 3 . NOTES: No Refills. IMAGING *EKG: Image captured from scanner. (12:21 SCHI) AMBULANCE REPORT: Image captured from scanner. (12:52 LWAL) MIST FORM: Image captured from scanner. (12:52 LWAL) *SUPPLY CHARGE SHEET: Image captured from scanner. (14:14 SCHI) *MEMORANDUM OF TRANSFER: Image captured from scanner. (14:44 LWAL) EMS TRANSPORT ORDERS: Image captured from scanner. (14:44 LWAL) CONSENTS: Image captured from scanner. (14:44 LWAL) TRANSFER QI WORKSHEET: Image captured from scanner. (14:44 LWAL) Page 2 added. Image captured from scanner. (14:46 LWAL) ADMIN (14:56 LHOD) DIGITAL SIGNATURE: MD Dunham Lefayne. RESULTS RADIOLOGY: XR Chest 1 View Portable Observe DT: Sat Aug 03, 2016 08:39, CXRP ONE VIEW CHEST HISTORY: Trauma. &a-1R&a+25V*p+0X*n9682O*c202B*c15G*c2P*p-0X&a-25V&a+1R Name: Delmis Chase : 1955 F61 MedRec: [id number] AcctNum: [id number] Prepared: Sat Aug 03, 2016 14:57 by Interface Page 12 of 15 pMD [facility] EMERGENCY RECORD COMPARISON: 01/24/2016 FINDINGS: Enlarged cardiac silhouette. Pleural and parenchymal changes in the left lung base cannot be exclud ed. Adequate aeration of the left upper lobe and right lung parenchyma. No pneumothorax or osseous abnormalities. IMPRESSION: 1. Cardiomegaly. 2. Pleural and parenchymal changes in the left lung base cannot be excluded. POS: [facility] . (11:39 LHOD) CT Abdomen Pelvis Trauma Observe DT: Sat Aug 03, 2016 09:45, ABDPELTRAU CT ABDOMEN WITH IV CONTRAST HISTORY: Fall. Abdomen injury and pain. FINDINGS: Atelectasis is present at the lung bases. A large hiatal hernia is present, with the stomach above the diaphragma. The liver, kidneys, and adrenal glands are within normal limits. No free fluid or free air apparent. The urinary bladder is unremarkable. A small amount of nonobstructed bowel exte nds into an umbilical hernia. Lack of oral contrast limits evaluation of the bowel. IMPRESSION: 1. Large hiatal hernia. 2. Umbilical hernia. 3. No acute traumatic injury is demonstrated. POS: OFF . (12:20 LHOD) CT Chest WO Con Observe DT: [facility] Aug 03, 2016 11:19, THX CT CHEST NONCONTRAST &a-1R&a+25V*p+0X*m8201V*c202B*c15G*c2P*p-0X&a-25V&a+1R Name: Delmis Chase : 1955 F61 MedRec: [id number] AcctNum: [id number] Prepared: [facility] Aug 03, 2016 14:57 by Interface Page 13 of 15 pMD [facility] EMERGENCY RECORD HISTORY: Fall. Chest injury. FINDINGS: There is mild atelectasis at each lung base. Calcified granulomata and mediastinal lymph nodes are consistent with healed granulomatous disease. A large hiatal hernia is again demonstrated, containi ng the stomach and most of the pancreas. No pleural fluid, pneumothorax, or mediastinal hematoma ev ident. IMPRESSION: 1. Large hiatal hernia. There are no findings to suggest that this is an acute traumatic hernia. 2. No acute traumatic injury is reliably demonstrated. POS: OFF . (13:12 LHOD) LABORATORY: Lipase Collection DT: [facility] Aug 03, 2016 10:04, Lipase 24 U/L, Range (8-78). (10:26 LHOD) Comprehensive Metabolic Panel Collection DT: [facility] Aug 03, 2016 10:04, Sodium 144 mmol/L, Range (136-145), Potassium 3.8 mmol/L, Range (3.5-5.1), Chloride 104 mmol/L, Range (98-107), Carbon Dioxide 27 mmol/L, Range (22-29), Anion Gap 17 mmol/L, Range (10-20), BUN (Urea Nitrogen) 18 mg/dL, Range (9.8-20.1), Creatinine 0.74 mg/dL, Range (0.6-1.1), Estimated GFR-MDRD Greater than 90 , Reference Range for Estimated GFR: Greater than 90, mL/min/1.73 m2 NOTE: The MDRD equation has not been validated for use, with the elderly (over 70 years of age), women, patients with, serious comorbid condition or persons with extremes of body size, muscle, mass, or nutritional status. , Glucose 80 mg/dL, Range (70-105), Calcium 9.3 mg/dL, Range (7.8-10.44), Bilirubin, Total Less than 0.3 mg/dL, Range (0.2-1.2), Protein, Total 6.2 g/dL, Range (6.0-8.3), NOTE: Plasma values are generally 0.3 to 0.5 g/dL higher than serum values, due to the presence of fibrinogen. , Albumin 3.7 g/dL, Range (3.5-5.0), Globulin 2.5 g/dL, Range (2.4-3.5), Alb/Glob Ratio 1.5 g/dL, Range (1.2-2.2), Alkaline Phosphatase 56 U/L, Range (40-150), AST (SGOT) 14 U/L, Range (5-34), &a-1R&a+25V*p+0X*i7079S*c202B*c15G*c2P*p-0X&a-25V&a+1R Name: Delmis Chase : 1955 F61 MedRec: [id number] AcctNum: [id number] Prepared: Sat Aug 03, 2016 14:57 by Interface Page 14 of 15 pMD [facility] EMERGENCY RECORD ALT (SGPT) 21 U/L, Range (0-55). (10:26 LHOD) CBC with Differential Collection DT: Sat Aug 03, 2016 10:04, White Blood Cell (WBC) Count 8.0 thou/uL, Range (4.8-10.8), *Red Blood Cell (RBC) Count 3.84 - L mill/uL, Range (4.20-5.40), *Hemoglobin 9.1 - L g/dL, Range (12.0-16.0), *Hematocrit 29.6 - L %, Range (36.0-47.0), *Mean Corpuscular Volume 77.1 - L fl, Range (81.0-99.0), *Mean Corpuscular Hemoglobin 23.6 - L pg, Range (27.0-31.0), *Mean Corpuscular HGB CONC 30.6 - L g/dL, Range (32.0-36.0), *RBC Distribution Width 17.0 - H %, Range (11.5-14.5), Platelet Count 279 thou/uL, Range (130-400), Mean Platelet Volume 7.4 fL, Range (7.4-10.4), Neutrophil 63 %, Range (42-75), Band 7 %, Range (5-11), Lymphocytes 23 %, Range (21-51), Reactive Lymphocytes 7 %, Range (0-10), Anisocytosis MARKED = >30 cells (100X), Range (0-5/hpf), Poikilocytosis SLIGHT = 6-15 cells (100X), Range (0-5/hpf), Microcytosis MARKED = >30 cells (100X), Range (0-5/hpf), Hypochromia SLIGHT = 6-15 cells (100X), Range (0-5/hpf). (10:31 LHOD) Rowe: LHOD=MD Roly, Mark LIRAAL=SOPHIE Bean, Ami BUCKNER=SOPHIE Zamora, inda &a-1R&a+25V*p+0X*b6415U*c202B*c15G*c2P*p-0X&a-25V&a+1R Name: Delmis Chase : 1955 F61 MedRec: [id number] AcctNum: [id number] Prepared: Sat Aug 03, 2016 14:57 by Interface Page 15 of 15 pMD [facility]TD[facility]
== END 2016-08-03 13:25 | disposition short-term general hospital (02) ==
LOC: MADERS 08:27
DX: G89.11 Acute pain due to trauma (principal); R10.9 Unspecified abdominal pain; R11.0 Nausea; M06.9 Rheumatoid arthritis, unspecified; I10 Essential (primary) hypertension; J45.909 Unspecified asthma, uncomplicated; E11.9 Type 2 diabetes mellitus without complications; I50.9 Heart failure, unspecified; Z79.4 Long term (current) use of insulin; Z79.899 Other long term (current) drug therapy; W06.XXXA Fall from bed, initial encounter
CPT/HCPCS: 36415; 51702; 71010; 71250; 74177; 80053; 81003; 83690; 85025; 93005; 96374; 96375; 96376; J1885; J2270; J2405

== ENCOUNTER 2017-01-16 12:37 | Emergency (ER) | payer OTHER, SELFPAY ==
[~2017-01-16 12:37] MED LIST: Sodium Chloride 0.9% 1,000 ML BAG ONE
[2017-01-16 13:50] LABS: INR-International Normal Ratio 0.9; Prothrombin Time 12.8 SEC (12.0-14.7)
[2017-01-16 13:55] LABS: Hemoglobin A1c 6.4 % (4.0-6.0)
[2017-01-16 13:56] LABS: #Basophils 0.1 thou/uL (0.0-0.2); #Eosinphils 0.2 thou/uL (0.0-0.7); #Lymphocytes 1.2 thou/uL (1.20-3.40); #Monocytes 0.6 thou/uL (0.11-0.59); #Neutrophils 4.9 thou/uL (1.40-6.50); %Basophils 1.4 % (0.0-1.0); %Eosinophils 2.3 % (0.0-10.0); %Lymphocytes 17.3 % (21.0-51.0); %Monocytes 8.2 % (0.0-10.0); %Neutrophils 70.7 % (42.0-75.0); Anisocytosis SLIGHT = 6-15 cells (100X) (0-5/hpf); Hemoglobin 9.6 g/dL (12.0-16.0); Hypochromia SLIGHT = 6-15 cells (100X) (0-5/hpf); MDiff Complete? YES; Mean Corpuscular Volume 75.6 fl (81.0-99.0); Mean Platelet Volume 7.6 fL (7.4-10.4); PLT Morphology Comment Appears Adequate; Platelet Count 233 thou/uL (130-400); RBC Distribution Width 17.4 % (11.5-14.5); Red Blood Cell (RBC) Count 4.39 mill/uL (4.20-5.40); White Blood Cell (WBC) Count 6.9 thou/uL (4.8-10.8)
[2017-01-16] MEDS ORDERED: Ondansetron HCl/PF 4 MG/2 ML Vial ONE (13:56)
[2017-01-16] MEDS ORDERED: Metoclopramide HCl 10 MG/2 ML VIAL ONE (13:56)
[2017-01-16] MEDS ORDERED: Octreotide Acetate 100 MCG/ML VIAL ONE (13:56)
[2017-01-16] MEDS ORDERED: Ketorolac Tromethamine 30 MG/ML VIAL ONE (13:56)
--- NOTE | 2017-01-16 14:00 | CT ---
CT HEAD WITHOUT CONTRAST: Date: ) 01/16/17 Multiple axial tomograms obtained through the head without IV enhancement. HISTORY: Dizziness. Comparison made to prior head CT dated 01/26/15. FINDINGS: Ventricles have normal size and position. There is no evidence of intracranial mass, hemorrhage, or infarct. Sinuses and mastoids are well aerated. IMPRESSION: No acute abnormality. POS: [facility]
[2017-01-16 14:02] LABS: CKMB 1.1 ng/mL (0-6.6); Troponin I 0.016 ng/mL (< 0.028)
--- NOTE | 2017-01-16 14:11 | RAD ---
2 VIEW CHEST: Date: 01/16/17 COMPARISON: 08/03/16. INDICATION: Weakness. FINDINGS: Retrocardiac soft tissue and air density is present indicating hiatal hernia. The cardiac silhouette is prominent in size. No obvious consolidation, effusion or discrete pneumothorax. IMPRESSION: Prominent sized hiatal hernia is redemonstrated. POS: [facility]
[2017-01-16 14:30] LABS: Bilirubin Negative (Negative); Blood, Urine Negative (Negative); Clarity Slightly Cloudy (Clear); Glucose, Urine (Dipstick) Negative (Negative); Leukocyte Trace (Negative); Nitrite Positive (Negative); Protein, Urine (Dipstick) Negative (Neg-Trace); RBC/HPF 0-3 HPF (0-3); Specific Gravity, Urine 1.015 (1.005-1.030); Urobilinogen 0.2 mg/dL (0.2-1.0)
[2017-01-16 14:31] LABS: Bacteria/HPF 4+ HPF (None Seen)
[2017-01-16] MEDS ORDERED: Sulfameth/Trimethoprim DS 800-160mg TAB ONE (14:54)
[2017-01-16 15:03] LABS: ALT (SGPT) 21 U/L (8-55); AST (SGOT) 18 U/L (5-34); Albumin 3.9 g/dL (3.5-5.0); Alkaline Phosphatase 44 U/L (40-150); Anion Gap 16 mmol/L (10-20); BUN (Urea Nitrogen) 10 mg/dL (9.8-20.1); Bilirubin, Total 0.4 mg/dL (0.2-1.2); Calc. Creatinine Clearance 0 mL/min (70-130); Calcium 9.5 mg/dL (7.8-10.44); Carbon Dioxide 24 mmol/L (22-29); Chloride 102 mmol/L (98-107); Estimated GFR-MDRD Greater than 90; Globulin 2.9 g/dL (2.4-3.5); Glucose 106 mg/dL (70-105); Potassium 3.3 mmol/L (3.5-5.1); Protein, Total 6.8 g/dL (6.0-8.3); Sodium 139 mmol/L (136-145)
== END 2017-01-16 15:10 | disposition home or self-care (01) ==
LOC: MADERS 12:37
DX: N39.0 Urinary tract infection, site not specified (principal); I11.0 Hypertensive heart disease with heart failure; I50.9 Heart failure, unspecified; I25.2 Old myocardial infarction; E11.9 Type 2 diabetes mellitus without complications; M06.9 Rheumatoid arthritis, unspecified; J44.9 Chronic obstructive pulmonary disease, unspecified; J45.909 Unspecified asthma, uncomplicated
CPT/HCPCS: 70450; 71020; 80053; 81001; 82553; 83036; 83735; 83880; 84443; 84484; 85025; 85610; 85730; 87077; 87086; 87186; 93005; 96361; 96374; 96375; J1885; J2354; J2405; J2765; J7050

== ENCOUNTER 2018-01-02 16:01 | Outpatient (CLI) | payer OTHER ==
[2018-01-02 16:27] LABS: ALT (SGPT) 18 U/L (8-55); AST (SGOT) 14 U/L (5-34); Albumin 3.8 g/dL (3.4-4.8); Alkaline Phosphatase 58 U/L (40-150); Anion Gap 17 mmol/L (10-20); BUN (Urea Nitrogen) 12 mg/dL (9.8-20.1); Bilirubin, Total 0.3 mg/dL (0.2-1.2); Calc. Creatinine Clearance 0 mL/min (70-130); Calcium 9.4 mg/dL (7.8-10.44); Carbon Dioxide 24 mmol/L (23-31); Chloride 104 mmol/L (98-107); Estimated GFR-MDRD Greater than 90; Glucose 129 mg/dL (80-115); Potassium 4.1 mmol/L (3.5-5.1); Protein, Total 6.8 g/dL (6.0-8.3); Sodium 141 mmol/L (136-145)
== END 2018-01-02 16:02 | disposition home or self-care (01) ==
LOC: MADLAB 16:01
PROVIDERS: ATTEND Family Medicine
DX: E11.65 Type 2 diabetes mellitus with hyperglycemia (principal)
CPT/HCPCS: 36415; 80053

== ENCOUNTER 2018-01-06 20:08 | Emergency (ER) | payer SELFPAY ==
[2018-01-06] MEDS ORDERED: Metoclopramide HCl 10 MG/2 ML VIAL ONE (20:44)
[2018-01-06] MEDS ORDERED: Sodium Chloride 0.9% 500 ML BAG ONE (20:47)
--- NOTE | 2018-01-06 20:55 | RAD ---
CHEST ONE VIEW: 01/06/18 HISTORY: Dyspnea. COMPARISON: CTA chest of 12/24/17. FINDINGS: There is elevation of the left hemidiaphragm. No focal air space consolidation, pneumothorax or effus ion. The previously described density in the right upper lobe not well seen. Multiple old right sided rib fractures. IMPRESSION: No acute intrathoracic abnormality. Opacity in the right upper lobe could be further evaluated with a followup CT of the chest nonemergently. POS: [facility]
[2018-01-06 21:01] LABS: #Monocytes 0.2 thou/uL (0.11-0.59); #Neutrophils 6.4 thou/uL (1.40-6.50); %Basophils 0.2 % (0.0-1.0); %Eosinophils 0.2 % (0.0-10.0); %Lymphocytes 12.6 % (21.0-51.0); %Monocytes 2.9 % (0.0-10.0); %Neutrophils 84.2 % (42.0-75.0); Anion Gap 16 mmol/L (10-20); BUN (Urea Nitrogen) 18 mg/dL (9.8-20.1); Calc. Creatinine Clearance 0 mL/min (70-130); Calcium 9.4 mg/dL (7.8-10.44); Carbon Dioxide 25 mmol/L (23-31); Chloride 104 mmol/L (98-107); Estimated GFR-MDRD 90; Glucose 171 mg/dL (80-115); Mean Corpuscular HGB CONC 29.2 g/dL (32.0-36.0); Mean Corpuscular Hemoglobin 20.6 pg (27.0-31.0); Mean Corpuscular Volume 70.7 fL (78.0-98.0); Mean Platelet Volume 6.8 fL (7.4-10.4); Platelet Count 374 thou/uL (130-400); Potassium 4.3 mmol/L (3.5-5.1); RBC Distribution Width 17.5 % (11.5-14.5); Red Blood Cell (RBC) Count 4.37 mill/uL (4.20-5.40); Sodium 141 mmol/L (136-145); White Blood Cell (WBC) Count 7.6 thou/uL (4.8-10.8)
[2018-01-06 21:02] LABS: Anisocytosis MARKED = >30 cells (100X) (0-5/hpf); Hypochromia MODERATE=16-30 cells (100X) (0-5/hpf); Microcytosis MARKED = >30 cells (100X) (0-5/hpf); Poikilocytosis SLIGHT = 6-15 cells (100X) (0-5/hpf); Target Cells MODERATE= 6-15 cells (100X) (0-1/hpf)
[2018-01-06 21:09] LABS: CKMB 0.8 ng/mL (0-6.6); Troponin I Less than 0.010 ng/mL (< 0.028)
== END 2018-01-06 21:47 | disposition home or self-care (01) ==
LOC: MADERS 20:08
DX: M62.81 Muscle weakness (generalized) (principal); D64.9 Anemia, unspecified; E11.9 Type 2 diabetes mellitus without complications; I11.0 Hypertensive heart disease with heart failure; I50.9 Heart failure, unspecified; I25.10 Atherosclerotic heart disease of native coronary artery without angina pectoris; I25.2 Old myocardial infarction; J44.9 Chronic obstructive pulmonary disease, unspecified; M06.9 Rheumatoid arthritis, unspecified; M19.90 Unspecified osteoarthritis, unspecified site; Z79.4 Long term (current) use of insulin; Z79.899 Other long term (current) drug therapy
CPT/HCPCS: 36415; 71045; 80048; 82553; 83880; 84484; 85025; 85379; 93005; 96361; 96374; J2765; J7050

== ENCOUNTER 2018-09-01 09:50 | Emergency (ER) | payer MEDICARE ==
[2018-09-01] MEDS ORDERED: Iopamidol 370 76% 125 ML VIAL FS ONE (10:10)
[2018-09-01] MEDS ORDERED: HYDROcodone/Acetaminophen 10/325 mg Tablet ONE (10:45)
[2018-09-01] MEDS ORDERED: Labetalol HCl 100 MG/20 ML VIAL ONE (10:46)
[2018-09-01] MEDS ORDERED: Acetaminophen 325 MG TAB ONE (10:46)
[2018-09-01] MEDS ORDERED: cloNIDine 0.1mg/24 Hour PATCH ONE ×2 (10:46→10:47)
[2018-09-01] MEDS ORDERED: cloNIDine 0.1 MG TAB ONE ×2 (10:47)
[2018-09-01 11:15] LABS: Band 2 % (5-11); Eosinophils 3 % (0-10); Hemoglobin 8.5 g/dL (12.0-16.0); Hypochromia SLIGHT = 6-15 cells (100X) (0-5/hpf); Lymphocytes 13 % (21-51); Mean Corpuscular HGB CONC 28.4 g/dL (32.0-36.0); Mean Corpuscular Hemoglobin 21.3 pg (27.0-31.0); Mean Corpuscular Volume 74.9 fL (78.0-98.0); Mean Platelet Volume 7.3 fL (7.4-10.4); Microcytosis SLIGHT = 6-15 cells (100X) (0-5/hpf); Monocytes 13 % (0-10); Neutrophil 69 % (42-75); Platelet Count 309 thou/uL (130-400); Platelet Morphology Comment Appears Adequate; RBC Distribution Width 17.7 % (11.5-14.5); Red Blood Cell (RBC) Count 4.01 mill/uL (4.20-5.40); White Blood Cell (WBC) Count 9.1 thou/uL (4.8-10.8)
[2018-09-01 11:21] LABS: ALT (SGPT) 41 U/L (8-55); AST (SGOT) 31 U/L (5-34); Alkaline Phosphatase 87 U/L (40-150); Anion Gap 18 mmol/L (10-20); BUN (Urea Nitrogen) 14 mg/dL (9.8-20.1); Bilirubin, Total 0.3 mg/dL (0.2-1.2); Calc. Creatinine Clearance 0 mL/min (70-130); Calcium 9.2 mg/dL (7.8-10.44); Carbon Dioxide 26 mmol/L (23-31); Chloride 101 mmol/L (98-107); Estimated GFR-MDRD Greater than 90; Globulin 2.3 g/dL (2.4-3.5); Glucose 108 mg/dL (80-115); Potassium 4.1 mmol/L (3.5-5.1); Protein, Total 6.3 g/dL (6.0-8.3); Sodium 141 mmol/L (136-145)
--- NOTE | 2018-09-01 12:10 | CT ---
CONTRAST ENHANCED CTA NECK AND INTRACRANIAL CTA: Date: 09/01/18 HISTORY: Severe elevated blood pressure, neck pain, possible dissection. FINDINGS: Contrast enhanced CTA of carotid arteries and intracranial CTA performed. Images demonstrated marked ectasia of the aorta. There is extensive right brachiocephalic artery ecta yessenia. No evidence of stenosis or dissection seen. The right and left common and internal carotid arter ies are patent, but ectatic. No evidence of ICA occlusion seen. Normal contrast opacification seen in the right and left anterior cerebral artery and middle cerebral artery, as well as the posterior circulation. IMPRESSION: No evidence of carotid or intracranial dissection. POS: [facility]
== END 2018-09-01 14:48 | disposition short-term general hospital (02) ==
LOC: MADERS 09:50
DX: I77.89 Other specified disorders of arteries and arterioles (principal); I10 Essential (primary) hypertension; E11.9 Type 2 diabetes mellitus without complications; I25.2 Old myocardial infarction; M06.9 Rheumatoid arthritis, unspecified; J44.9 Chronic obstructive pulmonary disease, unspecified; Z79.891 Long term (current) use of opiate analgesic; Z79.4 Long term (current) use of insulin; Z79.51 Long term (current) use of inhaled steroids
CPT/HCPCS: 70496; 70498; 80053; 85025; 93005; 96374; 96376; Q9967

== ENCOUNTER 2018-09-05 09:38 | Emergency (ER) | payer MEDICARE ==
[2018-09-05] MEDS ORDERED: Sodium Chloride 0.9% 100 ML BAG ONE (09:54)
[2018-09-05] MEDS ORDERED: Iopamidol 370 76% 75 ML VIAL FS ONE (09:54)
[2018-09-05 10:45] LABS: ALT (SGPT) 32 U/L (8-55); AST (SGOT) 23 U/L (5-34); Albumin 4.3 g/dL (3.4-4.8); Alkaline Phosphatase 71 U/L (40-150); Anion Gap 15 mmol/L (10-20); BUN (Urea Nitrogen) 14 mg/dL (9.8-20.1); Bilirubin, Total 0.2 mg/dL (0.2-1.2); Calc. Creatinine Clearance 0 mL/min (70-130); Carbon Dioxide 30 mmol/L (23-31); Chloride 101 mmol/L (98-107); Estimated GFR-MDRD 60; Globulin 2.9 g/dL (2.4-3.5); Glucose 114 mg/dL (80-115); Protein, Total 7.2 g/dL (6.0-8.3); Sodium 142 mmol/L (136-145)
[2018-09-05 10:46] LABS: Mean Corpuscular HGB CONC 28.2 g/dL (32.0-36.0); Mean Corpuscular Hemoglobin 21.1 pg (27.0-31.0); Mean Corpuscular Volume 74.7 fL (78.0-98.0); Mean Platelet Volume 7.7 fL (7.4-10.4); Platelet Count 261 thou/uL (130-400); RBC Distribution Width 18.1 % (11.5-14.5); Red Blood Cell (RBC) Count 4.29 mill/uL (4.20-5.40); White Blood Cell (WBC) Count 11.3 thou/uL (4.8-10.8)
[2018-09-05 10:47] LABS: Anisocytosis MODERATE=16-30 cells (100X) (0-5/hpf); Band 1 % (5-11); Hypochromia SLIGHT = 6-15 cells (100X) (0-5/hpf); Lymphocytes 6 % (21-51); MDiff Complete? YES; Microcytosis SLIGHT = 6-15 cells (100X) (0-5/hpf); Monocytes 2 % (0-10); Myelocyte 2 % (0-0); Neutrophil 78 % (42-75); Platelet Clumps SLIGHT; Platelet Morphology Comment Appears Adequate; Polychromasia SLIGHT = 2-3 cells (100X) (0-2/hpf); Reactive Lymphocytes 11 % (0-10)
[2018-09-05 10:48] LABS: Manual Diff?? YES
[2018-09-05] MEDS ORDERED: Dicyclomine 10 MG CAP ONE (10:50)
[2018-09-05] MEDS ORDERED: Ondansetron PF 4 MG/2 ML Vial ONE (11:08)
[2018-09-05] MEDS ORDERED: Labetalol HCl 100 MG/20 ML VIAL ONE (11:50)
--- NOTE | 2018-09-05 12:12 | CT ---
CT ABDOMEN AND PELVIS WITH IV CONTRAST: Date: 09/05/18 HISTORY: Abdominal pain. COMPARISON: 12/23/17. FINDINGS: Large hiatal hernia containing the entirety of the stomach is again demonstrated. Tiny cysts in the l iver are stable. The spleen, kidneys, adrenal glands, and pancreas are unremarkable. No enlarged lymp h nodes or free fluid. Urinary bladder is incompletely distended. Appendix not inflamed. Small loop o f small bowel and abdominal fat again protrude into the umbilicus. Degenerative changes lumbar spine. Scattered diverticula of the colon without adjacent inflammation. IMPRESSION: Large hiatal hernia. Small umbilical hernia containing nonobstructed bowel. Chronic-type findings are stable. No evidence of bowel obstruction. POS: [facility]
[2018-09-05] MEDS ORDERED: Fleet Enema 133 ML BOT ONE (12:30)
[2018-09-05] MEDS ORDERED: Prochlorperazine 10 MG/2 ML VIAL ONE (12:30)
== END 2018-09-05 14:00 | disposition home or self-care (01) ==
LOC: MADERS 09:38
DX: K59.09 Other constipation (principal); R11.2 Nausea with vomiting, unspecified; R55 Syncope and collapse; D64.89 Other specified anemias; I50.9 Heart failure, unspecified; I11.0 Hypertensive heart disease with heart failure; E11.9 Type 2 diabetes mellitus without complications; J44.9 Chronic obstructive pulmonary disease, unspecified; I25.10 Atherosclerotic heart disease of native coronary artery without angina pectoris; M19.90 Unspecified osteoarthritis, unspecified site; Z79.891 Long term (current) use of opiate analgesic; Z79.51 Long term (current) use of inhaled steroids; Z79.899 Other long term (current) drug therapy
CPT/HCPCS: 74177; 80053; 85025; 96361; 96374; 96375; J0780; J2405; J7050

== ENCOUNTER 2019-07-23 03:22 | Emergency (ER) | payer MEDICARE ==
[2019-07-23 03:46] LABS: #Basophils 0.1 thou/uL (0.0-0.2); #Lymphocytes 0.5 thou/uL (1.20-3.40); #Monocytes 0.3 thou/uL (0.11-0.59); #Neutrophils 7.1 thou/uL (1.40-6.50); %Basophils 0.8 % (0.0-1.0); %Eosinophils 0.5 % (0.0-10.0); %Lymphocytes 6.5 % (21.0-51.0); %Monocytes 4.2 % (0.0-10.0); Hemoglobin 12.2 g/dL (12.0-16.0); Mean Corpuscular HGB CONC 29.5 g/dL (32.0-36.0); Mean Corpuscular Hemoglobin 26.4 pg (27.0-31.0); Mean Corpuscular Volume 89.4 fL (78.0-98.0); Mean Platelet Volume 8.2 fL (7.4-10.4); Platelet Count 312 thou/uL (130-400); RBC Distribution Width 15.4 % (11.5-14.5); Red Blood Cell (RBC) Count 4.62 mill/uL (4.20-5.40)
[2019-07-23 04:01] LABS: ALT (SGPT) 26 U/L (8-55); AST (SGOT) 19 U/L (5-34); Alkaline Phosphatase 74 U/L (40-110); Anion Gap 18 mmol/L (10-20); BUN (Urea Nitrogen) 17 mg/dL (9.8-20.1); Bilirubin, Total 0.3 mg/dL (0.2-1.2); CK (CPK) 38 U/L (29-168); Calc. Creatinine Clearance 0 mL/min (70-130); Calcium 9.3 mg/dL (7.8-10.44); Carbon Dioxide 24 mmol/L (23-31); Chloride 106 mmol/L (98-107); Estimated GFR-MDRD 85; Globulin 2.9 g/dL (2.4-3.5); Glucose 146 mg/dL (80-115); Protein, Total 6.9 g/dL (6.0-8.3); Sodium 144 mmol/L (136-145)
[2019-07-23] MEDS ORDERED: Ondansetron PF 4 MG/2 ML Vial ONE (04:11)
[2019-07-23] MEDS ORDERED: Ketorolac Tromethamine 30 MG/ML VIAL ONE (06:39)
--- NOTE | 2019-07-23 07:52 | CT ---
PRELIMINARY REPORT/[facility]/EMERGENCY AFTER HOURS PROCEDURE: EXAM: CTA Chest, With Contrast. DATE/ TIME: 07/23/2019, 5:02 AM INDICATION: Elevated d-dimer TECHNIQUE: During the rapid intravenous administration of 100 mL Isovue-370, helical CT of the chest was performed utilizing angiographic protocol. MPRs and multiplanar MIPs were generated and reviewed. Exam was performed using one or more of the following dose reduction techniques: automate d exposure control, adjustment of the mA and/or kV according to patient size, or use of iterative reconstruction technique. COMPARISON: None. FINDINGS: The entire stomach with mesentery has herniated into the left hemithorax through a 4 cm hi atal/ diaphragmatic defect with associated foreshortening of the esophagus. The stomach is filled with liquid. Also drawn into the hernia opening is the pancreatic body. This is causing significant compressive atelectasis of the left lung. It also is placing extrinsic compression on the heart, which is not enlarged. Tracheal and bronchial lumens are significantly narrowed with a crescentic ap pearance. Large calcified granuloma in the left lower lobe is noted. Right lung is clear. There are no pleural effusions. Pulmonary arterial system is well-opacified and there is no intraluminal filling defect. Aorta is w ithout aneurysm or dissection. Calcified pretracheal, subcarinal and left bronchial lymph nodes are seen. There is no pleural effusion. Imaging continues into the abdomen to a level 4 cm below the renal artery takeoffs. Liver has a coar se parenchymal pattern and is hypoattenuated consistent with fatty infiltration. No upper abdominal acute pathology is seen. There is a large amount of extrathoracic, retroperitoneal, intra- abdominal and extra-abdominal adipose tissue. Severe erosive osteoarthritis of the shoulders with associated effusions is noted discogenic degenerative changes are seen throughout the spine with a an terior wedge compression deformity of T12 due to a compression of the inferior endplate. There are fractures of the right 3rd, 4th, 5th, 6th and 9th ribs which appear to be of varying ages. IMPRESSION: 1. No pulmonary thromboembolism. 2. Intrathoracic stomach causing extrinsic compression on the heart and left lung. There is esophag eal foreshortening. Cardiothoracic surgical consult is suggested. 3. Several right rib fractures of varying ages. 4. 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 5. Hepatosteatosis. ELECTRONICALLY SIGNED BY: Benja Momin DO Jul 23, 2019 6:25:16 AM TOPOLOGY PROFESSOR FINAL REPORT CT PULMONARY ANGIOGRAM WITH IV CONTRAST AND 3-D POSTPROCESSING: I agree with the report given by Dr. Benja Momin of [facility]. Transcribed Date/Time: 07/23/2019 8:01 AM
== END 2019-07-23 07:00 | disposition short-term general hospital (02) ==
LOC: MADERS 03:22
DX: R55 Syncope and collapse (principal); R19.7 Diarrhea, unspecified; R11.2 Nausea with vomiting, unspecified; J44.9 Chronic obstructive pulmonary disease, unspecified; I25.10 Atherosclerotic heart disease of native coronary artery without angina pectoris; I25.2 Old myocardial infarction; I11.0 Hypertensive heart disease with heart failure; I50.9 Heart failure, unspecified; E11.9 Type 2 diabetes mellitus without complications; M06.9 Rheumatoid arthritis, unspecified; D64.9 Anemia, unspecified; Z79.899 Other long term (current) drug therapy; Z79.51 Long term (current) use of inhaled steroids
CPT/HCPCS: 71275; 80053; 82550; 84484; 85025; 85379; 93005; 94760; 96374; 96375; J1885; J2405